=== PATIENT | male | born 1990 | race Caucasian/White ===

== ENCOUNTER 2022-08-30 02:00 | Emergency (ER) | payer OTHER ==
[~2022-08-30] VITALS: Ht 172.7 cm; Wt 91.7 kg
[2022-08-30] MEDS ORDERED: ALBU8.5H INH (02:17)
[2022-08-30] MEDS ORDERED: KETO2CR TOP (02:17)
[2022-08-30] MEDS ORDERED: ONDA4TAB6 PO (02:17)
[2022-08-30] MEDS ORDERED: CARA1TAB6 PO (02:17)
[2022-08-30] MEDS ORDERED: WELLTAB40 PO (02:17)
[2022-08-30] MEDS ORDERED: HYDR-4517 PO (02:17)
[2022-08-30] MEDS ORDERED: PREV1CAP PO (02:17)
[2022-08-30] MEDS ORDERED: CYCL-707 PO (02:17)
[2022-08-30] MEDS ORDERED: GABA600T4 PO (02:17)
[2022-08-30] MEDS ORDERED: ADV250INH INH (02:17)
[2022-08-30] MEDS ORDERED: NS 1,000 ML IV ONE (08:20)
[2022-08-30] MEDS ORDERED: ONDANSETRON 4MG 2ML VIAL IV ONE (08:20)
[2022-08-30] MEDS ORDERED: KETOROLAC 30 MG/ML 1ML VIAL IV ONE (08:20)
[2022-08-30 09:00] LABS: HEMATOCRIT 42.3 % (42.0-52.0); HEMOGLOBIN 14.4 g/dl (13.5-17.5); MEAN CORPUSCULAR HEMOGLOBIN 31.5 pg (27.0-33.0); MEAN CORPUSCULAR VOLUME 92.6 fl (80.0-96.0); PLATELET COUNT, AUTOMATED 140 10^3/uL (150-450); RED BLOOD COUNT 4.57 10^6/uL (4.30-6.10); WHITE BLOOD COUNT 4.7 10^3/uL (4.0-10.0)
[2022-08-30] MEDS ORDERED: ISOVUE-370 76% 100ML VIAL As Ordered ONE (09:06)
[2022-08-30 09:29] LABS: ATYPICAL LYMPH 13 % (0-5); LYMPHOCYTES 24 % (16-44); MONOCYTES 6 % (0-5); NEUTROPHILS 54 % (28-66); PLASMA CELL 2 % (0-0)
[2022-08-30 09:30] LABS: ALBUMIN 3.7 G/DL (3.2-5.2); BILIRUBIN,DIRECT 0.2 MG/DL (<0.4); BILIRUBIN,TOTAL 0.4 MG/DL (0.3-1.2); PLATELET ESTIMATE DECREASED (NORMAL); TOTAL PROTEIN 6.6 G/DL (5.7-8.2)
[2022-08-30] MEDS ORDERED: AMOX500C PO (11:43)
[2022-08-30] MEDS ORDERED: ACET-897 PO (11:47)
[2022-08-30] MEDS ORDERED: IBUP80TA PO (11:47)
[2022-08-30 12:25] VITALS: BP 149/80
== END 2022-08-30 12:26 | disposition home or self-care (01) ==
LOC: M ED 02:00
DX: S02.32XA Fracture of orbital floor, left side, initial encounter for closed fracture (principal); R10.9 Unspecified abdominal pain; Y09 Assault by unspecified means; R16.1 Splenomegaly, not elsewhere classified; K44.9 Diaphragmatic hernia without obstruction or gangrene; K76.0 Fatty (change of) liver, not elsewhere classified; J45.909 Unspecified asthma, uncomplicated; G89.29 Other chronic pain; M54.40 Lumbago with sciatica, unspecified side; Z87.442 Personal history of urinary calculi; F17.200 Nicotine dependence, unspecified, uncomplicated; Z88.1 Allergy status to other antibiotic agents; Z88.6 Allergy status to analgesic agent; Z79.51 Long term (current) use of inhaled steroids; Z79.899 Other long term (current) drug therapy
CPT/HCPCS: 70450; 70486; 71045; 71101; 74177; 76705; 80047; 80076; 85025; 96361; 96374; 96375; 99284; J1885; J2405